=== PATIENT | male | born 1985 | race Caucasian/White ===

== ENCOUNTER 2016-09-11 01:41 | Emergency (ER) | payer SELFPAY ==
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
[2016-09-11 02:09] LABS: BASO % 0.4 % (0-6); EOS % 0.7 % (0-6); GRAN % 60.4 % (47-80); HEMATOCRIT 41.4 % (42.0-52.0); HEMOGLOBIN 14.9 gm/dl (14.0-18.0); LYMPH % 29.7 % (16-45); MEAN CELL VOLUME 85.4 fl (81-97); MEAN CORPUSCULAR HEMOGLOBIN 30.7 pg (27-33); MEAN PLATELET VOLUME 8.8 fl (7.4-10.4); MONO % 8.8 % (0-9); PLATELET COUNT 284 K/uL (130-400); RED BLOOD COUNT 4.85 M/uL (4.40-5.70); RED CELL DISTRIBUTION WIDTH 12.9 % (11.5-14.5); WHITE BLOOD COUNT W/O DIFF 11.8 K/uL (4.2-12.2)
[2016-09-11 02:21] LABS: ALB/GLOB RATIO 1.8 (1.1-1.8); ALBUMIN 4.4 gm/dL (3.5-5.0); ALKALINE PHOSPHATASE 62 U/L (38-126); ALT/SGPT 38 U/L (21-72); ANION GAP 8.1 (7-16); AST/SGOT 45 U/L (17-59); BILIRUBIN,TOTAL 0.71 mg/dL (0.2-1.3); BLOOD UREA NITROGEN 9 mg/dL (9-20); CARBON DIOXIDE 24.9 mmol/L (22-30); EST GLOMERULAR FILTRATION RATE > 60 ml/min; GLUCOSE,RANDOM 120 mg/dL (70-110); TOTAL PROTEIN 6.8 gm/dL (6.3-8.2)
[2016-09-11 02:35] LABS: ALCOHOL 0.146 g/dL (0-0.010)
[2016-09-11] MEDS: IBUPROFEN 600 MG TABLET PO ONE (03:45)
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
== END 2016-09-11 04:13 | disposition home or self-care (01) ==
LOC: ER 01:41
DX: S01.01XA Laceration without foreign body of scalp, initial encounter (principal); S10.93XA Contusion of unspecified part of neck, initial encounter; S30.1XXA Contusion of abdominal wall, initial encounter; S20.219A Contusion of unspecified front wall of thorax, initial encounter; F10.920 Alcohol use, unspecified with intoxication, uncomplicated; Y90.6 Blood alcohol level of 120-199 mg/100 ml; Y04.2XXA Assault by strike against or bumped into by another person, initial encounter
CPT/HCPCS: 99283; 12001; 99284; 85025; 80053; 72125; 71250; 70450; 74177; G0480; Q9967; 80320